=== PATIENT | male | born 1960 | race Caucasian/White ===

== ENCOUNTER 2024-03-14 06:18 | Day surgery (SDC) | payer OTHER, SELFPAY ==
[2024-03-14] VITALS (7 sets, daily range): BP systolic 133–185; BP diastolic 74–98; BMI 31.8
[2024-03-14] MEDS: CELEBREX 200 MG PO (13:39)
[2024-03-14] MEDS: TYLENOL 1000 MG PO (13:39)
== END 2024-03-14 17:56 | disposition home or self-care (01) ==
LOC: SDS 06:18
PROVIDERS: ATTENDING PHYSICIAN Specialist
DX: S83.241A Other tear of medial meniscus, current injury, right knee, initial encounter (principal); X58.XXXA Exposure to other specified factors, initial encounter; M94.261 Chondromalacia, right knee
CPT/HCPCS: 29881